=== PATIENT | female | born 1970 | race Caucasian/White ===

== ENCOUNTER 2017-02-12 04:23 | Emergency (ER) | payer OTHER ==
[~2017-02-12] VITALS: Ht 162.6 cm; Wt 74.8 kg
[~2017-02-12 04:23] MED LIST: ALPR2TAB7
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
--- NOTE | 2017-02-12 04:44 | NUR ---
Patient discharged to home in stable conditon. Written and verbal after care instructions given. Patient verbalizes understanding of instructions. pt walked out of ER unassisted with belongings at [facility]...
[2017-02-12 04:45] VITALS: BP 141/113
[2017-02-12] MEDS ORDERED: HYDROCODONE/APAP 10-325 MG TABLET PO ONE (04:45)
[2017-02-12] MEDS ORDERED: CLINDAMYCIN HCL 150 MG CAPSULE PO ONE (04:45)
[2017-02-12] MEDS ORDERED: HYDROCODONE/APAP 10-325 MG TABLET ONE (04:54)
[2017-02-12] MEDS ORDERED: CLINDAMYCIN HCL 150 MG CAPSULE ONE (04:54)
== END 2017-02-12 04:47 | disposition home or self-care (01) ==
LOC: ER 04:27
DX: S60.462A Insect bite (nonvenomous) of right middle finger, initial encounter (principal); M79.644 Pain in right finger(s); M79.89 Other specified soft tissue disorders; I10 Essential (primary) hypertension; F41.9 Anxiety disorder, unspecified; F17.200 Nicotine dependence, unspecified, uncomplicated; Z88.2 Allergy status to sulfonamides; W57.XXXA Bitten or stung by nonvenomous insect and other nonvenomous arthropods, initial encounter; Y93.89 Activity, other specified; Y92.89 Other specified places as the place of occurrence of the external cause; Y99.8 Other external cause status
CPT/HCPCS: A4663

== ENCOUNTER 2019-12-20 01:18 | Emergency (ER) | payer SELFPAY ==
--- NOTE | 2019-12-20 02:13 | NUR ---
Patient left without being traiged or seen by ERMD.
== END 2019-12-20 02:14 | disposition left against medical advice (07) ==
LOC: ER 01:21
DX: Z75.3 Unavailability and inaccessibility of health-care facilities (principal)

== ENCOUNTER 2019-12-29 03:57 | Emergency (ER) | payer MEDICAID ==
[~2019-12-29] VITALS: Ht 165.1 cm; Wt 111.1 kg
--- NOTE | 2019-12-29 04:00 | NUR ---
Dr. Tyler at bedside for MSE
--- NOTE | 2019-12-29 04:05 | NUR ---
Patient picked up via w/c in front of ED. patient able to ambulate to wheel chair. A&O x4. c/o sore throat. Denies any N / V / D. Speech is clear and able to make needs known / follow commands. Breathing even and unlabored. No cough or SOB noted. Denies any CP, dizziness, [place], Blurred vision. Denies any / GI distress.
[2019-12-29 04:47] VITALS: BP 126/72
--- NOTE | 2019-12-29 05:00 | NUR ---
Patient discharged to home in stable condition. Written and verbal after care instructions given. Patient verbalizes understanding of instructions. Stressed follow up or return to ER for worsening s/s. Patient requested to be taken to ride home outside of ED via wheelchair. Patient able to ambulate to wheelchair in steady gait. NAD noted
== END 2019-12-29 05:00 | disposition home or self-care (01) ==
LOC: ER 04:04
DX: B95.0 Streptococcus, group A, as the cause of diseases classified elsewhere (principal); I10 Essential (primary) hypertension
CPT/HCPCS: 36415; 86403; A4663

== ENCOUNTER 2020-03-25 21:47 | Emergency (ER) | payer MEDICAID ==
[~2020-03-25] VITALS: Ht 165.1 cm; Wt 92.1 kg
[2020-03-25] MEDS ORDERED: BIOT5TAB PO (21:59)
[2020-03-25] MEDS ORDERED: OMEP20TA20 PO (21:59)
[2020-03-25] MEDS ORDERED: ONDANSETRON 4 MG/2 ML VIAL IV ONE (22:15)
[2020-03-25] MEDS ORDERED: MORPHINE SULFATE 4 MG/1 ML DISP.SYRIN IV ONE (22:15)
[2020-03-25] MEDS ORDERED: IV NORMAL SALINE 1000 ML BAG IV ONE (22:15)
[2020-03-25 22:53] LABS: *BILIRUBIN,URIN NEGATIVE (NEGATIVE); *CLARITY,URINE CLEAR (CLEAR); *COLOR,URINE LIGHT YELLOW (YELLOW); *KETONES,URINE NEGATIVE (NEGATIVE); *UROBILINOGEN,URINE 0.2 E.U./dl (NORMAL); LEUKOCYTE ESTERASE ,URINE NEGATIVE (NEGATIVE); NITRITE, URINE NEGATIVE (NEGATIVE); UGLUCOSE NEGATIVE (NEGATIVE)
[2020-03-25 22:54] LABS: *BLOOD, URINE TRACE INTACT (NEGATIVE)
[2020-03-25] MEDS ORDERED: MORPHINE SULFATE 4 MG/1 ML DISP.SYRIN ONE (23:07)
[2020-03-25] MEDS ORDERED: ONDANSETRON 4 MG/2 ML VIAL ONE ×2 (23:07)
[2020-03-25 23:19] LABS: CREATININE 0.8 mg/dL (0.6-1.3); POTASSIUM 4.1 mmol/L (3.5-5.1)
[2020-03-25 23:31] LABS: BACTERIA,URINE NONE SEEN /HPF (NONE SEEN); WBC,URINE 0-3 /HPF (0-3)
[2020-03-25 23:32] LABS: SQUAMOUS EPITHELIAL CELL,UR FEW /HPF (NONE SEEN)
[2020-03-25 23:33] LABS: BILIRUBIN,DIRECT 0.1 mg/dL (0.0-0.2); BILIRUBIN,TOTAL 0.3 mg/dL (0.2-1.0); TOTAL PROTEIN, SERUM 6.9 g/dL (6.4-8.2)
[2020-03-25] MEDS ORDERED: IV NORMAL SALINE 250 ML IV ONE (23:42)
[2020-03-25] MEDS ORDERED: IOHEXOL 300MG/ML 100 ML INFUS..BTL ONE (23:42)
[2020-03-25] MEDS ORDERED: SWABABLE VALVE TRANSFER SET EA MC ONE (23:42)
--- NOTE | 2020-03-26 00:10 | NUR ---
[address] in [facility] - 03/26/[address] at [id number] Brannon Hernandez NP election clerk for [facility].
[2020-03-26 00:48] LABS: BASOPHILS # (AUTO) 0.1 K/uL (0.0-8.0); BASOPHILS % (AUTO) 0.5 % (0.0-2.0); EOSINOPHILS % (AUTO) 0.1 % (0.0-7.0); HEMATOCRIT 38.8 % (31.2-41.9); LYMPHOCYTES # (AUTO) 1.8 K/uL (20.0-40.0); MEAN CORPUSCULAR HEMOGLOBIN 28.7 uug (24.7-32.8); MEAN CORPUSCULAR HGB CONC 34 g/dL (32.3-35.6); MEAN CORPUSCULAR VOLUME 85.7 fL (75.5-95.3); MONOCYTES # (AUTO) 0.7 K/uL (2.0-10.0); MONOCYTES % (AUTO) 5.1 % (0.0-11.0); NEUTROPHILS # (AUTO) 11.3 K/uL (1.8-8.9); NEUTROPHILS % (AUTO) 81.3 % (38.5-71.5); PLATELET COUNT (AUTO) 234 K/uL (179-408); RED BLOOD CELL COUNT(AUTO) 4.53 MIL/uL (3.63-4.92); WHITE BLOOD COUNT (AUTO) 13.9 K/uL (3.8-11.8)
[2020-03-26] MEDS ORDERED: MORPHINE SULFATE 2 MG/1 ML DISP.SYRIN IV ONE (01:00)
[2020-03-26] MEDS ORDERED: MORPHINE SULFATE 2 MG/1 ML DISP.SYRIN ONE (01:04)
--- NOTE | 2020-03-26 01:08 | NUR ---
Patient out of unit for ct scan via g[place].
--- NOTE | 2020-03-26 01:22 | NUR ---
Patient back from ct scan with no distress noted.
--- NOTE | 2020-03-26 03:30 | NUR ---
[place] speaking with patient's surgeon Dr Marv Golden.
[2020-03-26] MEDS ORDERED: FENTANYL CITRATE 100 MCG/2 ML AMPUL IV ONE (03:45)
[2020-03-26] MEDS ORDERED: IV NS 1000 ML 1,000 ML IV ONE (03:45)
[2020-03-26] MEDS ORDERED: FENTANYL CITRATE 100 MCG/2 ML AMPUL ONE (04:03)
--- NOTE | 2020-03-26 06:19 | NUR ---
Patient requested IV removed. Catheter intact and site benign. Pressure and 4x4 gauze applied to site. No bleeding noted.
--- NOTE | 2020-03-26 06:20 | NUR ---
Sheree parada into do procedures.
[2020-03-26] MEDS ORDERED: MORPHINE SULFATE 4 MG/1 ML DISP.SYRIN ONE ×3 (06:58→12:14)
[2020-03-26] MEDS ORDERED: MORPHINE SULFATE 4 MG/1 ML DISP.SYRIN IM ONE (07:00)
--- NOTE | 2020-03-26 07:13 | NUR ---
[employer] from [place] called back. Request to Fax clinical to .
[2020-03-26] MEDS ORDERED: ONDANSETRON 4 MG/2 ML VIAL IV ONE (07:45)
[2020-03-26] MEDS ORDERED: PANTOPRAZOLE SODIUM 40 MG VIAL IV ONE (07:45)
[2020-03-26] MEDS ORDERED: MORPHINE SULFATE 4 MG/1 ML DISP.SYRIN IV ONE ×2 (07:45→12:00)
[2020-03-26] MEDS ORDERED: ONDANSETRON 4 MG/2 ML VIAL ONE (08:03)
[2020-03-26] MEDS ORDERED: PANTOPRAZOLE SODIUM 40 MG VIAL ONE (08:03)
--- NOTE | 2020-03-26 09:15 | NUR ---
[employer] assumes care- patient is ASHLEY OSUNA, respiration:easy, on continuous BP & spO2 monitors w/ alarms set, on & audible, patient denies pains@the moment, NAD, for [employer] insurance transfer@this time
--- NOTE | 2020-03-26 09:19 | NUR ---
[address] in [facility] - 03/26/20 at 1041 by SKYLAR [employer] Maintenance Worker assumes care- Patient is AOx4,+nausea, still for EKG & urine specimen collection & for medical clearance, Patient is calm & cooperative, in room 3 for droplet/airborne isolation.
--- NOTE | 2020-03-26 10:02 | NUR ---
Patient is resting comfortably on gurney with eyes closed, NAD, pending callback from [facility] insurance defense attorney for transfer information
--- NOTE | 2020-03-26 11:33 | NUR ---
Patient says that she can not recall her surgeon's name or telephone numbers. [employer] nurse was lent to patient. Patient called her ride, [id number]. Fluid oral intake encouraged.
--- NOTE | 2020-03-26 11:44 | NUR ---
Patient wants to go home, MD is aware.
--- NOTE | 2020-03-26 12:23 | NUR ---
PICC line not done / for discharge. Patient discharged to home in stable condition & steady gait. Written and verbal after care instructions given to patient. Patient verbalized understanding & compliance of instructions. Stressed follow up with her surgeon or return to ER for worsening s/s. Patient expressed decreased abdominal pains.
== END 2020-03-26 12:23 | disposition home or self-care (01) ==
LOC: ER 21:47
DX: G89.18 Other acute postprocedural pain (principal); R10.13 Epigastric pain; Z98.84 Bariatric surgery status; Z82.49 Family history of ischemic heart disease and other diseases of the circulatory system; F41.9 Anxiety disorder, unspecified; I10 Essential (primary) hypertension
CPT/HCPCS: 36415; 74177; 76705; 80048; 80076; 81001; 83605; 83690; 85025; 87426; 93005; 96361; 96372; 96374; 96375; 99285; C9113; J2270 ×5; J2405 ×3; J3010; Q9967; J7030; J7050